=== PATIENT | male | born 1975 | race Hispanic/Latino ===

== ENCOUNTER 2025-05-31 09:49 | Emergency (ER) | payer OTHER ==
[~2025-05-31] VITALS: Ht 160 cm; Wt 136.1 kg
[2025-05-31 09:49] VITALS: TEMP 97.9
[2025-05-31 10:00] LABS: BASOPHILS % 0.5 % (0.0-1.0); EOSINOPHILS % 4.5 % (0.0-6.0); LYMPHOCYTES % 16.6 % (18.0-39.1); MONOCYTES % 6.4 % (4.4-11.3); NEUTROPHILS % 71.3 % (38.7-80.0); RED CELL DISTRIBUTION WIDTH 14.6 % (11.7-14.4)
[2025-05-31] MEDS ORDERED: METFORMIN HCL500 MG PO (10:00)
[2025-05-31] MEDS ORDERED: LISINOPRIL-HCT1 EAC1 PO (10:00)
[2025-05-31] MEDS: SODIUM CHLORIDE 0.9% 1000ML 1,000 ML IV ONE (10:00)
[2025-05-31] MEDS ORDERED: ELIQUIS5 MG PO (10:00)
[2025-05-31 10:29] LABS: EST GLOMERULAR FILTRATION RATE 107.0 ML/MIN (>=60)
[2025-05-31] MEDS: POTASSIUM CHLORIDE 20 MEQ TAB CR PO STA (11:01)
[2025-05-31] MEDS: POTASSIUM CHLORIDE 20MEQ/100ML 100 ML IV SCH (11:02)
[2025-05-31] MEDS ORDERED: SODIUM CHLORIDE 0.9% 1000ML 1,000 ML ONE ×2 (11:15→15:35)
[2025-05-31 12:00] VITALS: PULSE 88; RESP 21; O2SAT 100
== END 2025-05-31 18:49 | disposition home or self-care (01) ==
LOC: ER 09:53
DX: E87.6 Hypokalemia (principal); I10 Essential (primary) hypertension; E11.65 Type 2 diabetes mellitus with hyperglycemia; R53.81 Other malaise
CPT/HCPCS: 36415; 80053; 85025; 93005; 99283; J3480; J7030